=== PATIENT | male | born 1970 | race Caucasian/White ===

== ENCOUNTER 2019-08-02 08:32 | Day surgery (SDC) | payer MEDICAID ==
[2019-08-02] MEDS ORDERED: LACTATED RINGERS 1,000 ML IV ONE (08:37)
[2019-08-02] MEDS ORDERED: CEFAZOLIN SODIUM IN 0.9 % NACL 2 GM/100 ML BAG IV ONE (08:46)
[2019-08-02] MEDS ORDERED: LIDOCAINE 1% 50 ML MDV ONE (08:48)
[2019-08-02] MEDS ORDERED: BUPIVACAINE 0.5%-EPI 1:200000 PF 10 ML VIAL ONE (08:49)
--- NOTE | 2019-08-02 09:26 | ANESTHESIA ---
Pre-Anesthesia VS, & Labs - Diagnosis Left Inguinal Hernia Repair, Umbilical Hernia repair - Procedure Repair of Umbilical and left inguinal hernias Vital Signs: Temp Pulse Resp BP Pulse Ox 36.4 C L 57 L 16 115/80 100 08/02/19 08:52 08/02/19 08:52 08/02/19 08:52 08/02/19 08:52 08/02/19 08:52 Height 6 ft 1 in Weight (kg) 102 kg - NPO >8 hours Home Medications and Allergies Home Medications: Ambulatory Orders Citalopram Hydrobromide [Citalopram HBr] 10 mg PO DAILY 07/27/19 Ibuprofen [Motrin] 600 mg PO Q6H PRN 07/27/19 Citalopram Hydrobromide [Citalopram HBr] 10 mg PO DAILY 07/27/19 Ibuprofen [Motrin] 600 mg PO Q6H PRN 07/27/19 Allergies/Adverse Reactions: Allergies Allergy/AdvReac Type Severity Reaction Status Date / Time No Known Drug Allergies Allergy Verified 07/27/19 16:37 Anes History & Medical History - Anesthetic History Anesthesia Complications: reports: No previous complications - Medical History Cardiovascular: reports: None Pulmonary: reports: Sleep apnea (Does not use CPAP) Gastrointestinal: reports: None Urinary: reports: Nocturia Neuro: reports: None Musculoskeletal: reports: Chronic back pain Endocrine/Autoimmune: reports: None Blood Disorders: reports: None Skin: reports: None Smoking Status: Current every day smoker (1/4 pack per days X 20 years) Psychosocial: reports: Depression, Alcohol (2-3 drinks, 2-3x per week), Cannabis (Daily) - Surgical History General: Other (hemorrhoidectomy) Exam General: Alert, Oriented x3, Cooperative, No acute distress Dental: WNL Mouth Openin Fingerbreadth Neck Mobility: Normal Mallampati classification: I Thyromental Distance: greater than 6 cm Respiratory: Lungs clear, Normal breath sounds, No respiratory distress, No accessory muscle use Cardiovascular: Regular rate, Normal S1, Normal S2, No murmurs Mental/Cognitive Status: Alert/Oriented X3, Normal for patient Plan Anesthesia Type: General Consent for Procedure(s) Verified and Reviewed: Yes Code Status: Attempt Resuscitation ASA classification: 3-Severe systemic disease (untreated CHINTAN) Is this case an emergency?: No
[2019-08-02] MEDS ORDERED: ceFAZolin 1 GM VIAL ONE (09:30)
--- NOTE | 2019-08-02 09:58 | OPERATIVE REPORT ---
Operative Report - General Planned Procedure: Umbilical hernia repair Left inguinal hernia repair Pre-Op Diagnosis: Incarcerated umbilical hernia, Left inguinal hernia Procedure Performed: Repair of umbilical hernia and left inguinal hernia Post Op Diagnosis: Same - Procedure Note Primary Surgeon: Leidy Anesthesia Provider: SARAH Muse Anesthesia Technique: General ET tube, Local IV Fluids (mL): 200 Indications: Painful umbilical and left inguinal hernias Findings: Large pantaloon left inguinal hernia 1 cm umbilical hernia with incarcerated perperitoneal fat. Complications: none apparent - Other Other Information/Narrative: After obtaining informed consent, the patient is brought to the operating room and placed in the supine position on the operating table. Following successful induction of general anesthesia, appropriate padding of all bony prominences, and placement of appropriate monitors, the left abdomen and groin were prepped and draped in the standard surgical fashion. A timeout was held per IDOAP protocol. All elements of the surgical safety checklist were observed before, during, and following the procedure. We began with an ileal inguinal nerve block on the left side. This was done by infiltrating a mixture of local anesthetics medial to the anterior superior iliac spine. We continued by selecting a site for an incision in the left inguinal region. This was infiltrated with local anesthetic as well. The incision was created and carried down through the skin and subcutaneous tissue. Antonia's fascia was divided revealing the external oblique aponeurosis. The aponeurosis was opened in the direction of its fibers and the leaflets reflected laterally. The spermatic cord and hernia sac were carefully identified. The hernia sac was dissected from the cord and allowed to retract back into the abdominal cavity. A large portion of preperitoneal fat was also removed from the cord and placed back into the abdominal cavity. We elected to repair this large indirect defect using a large Prolene hernia system by layered mesh implant. This was dipped in Ancef solution and deployed into the indirect defect. The posterior leaflet was then straightened and flattened in the preperitoneal space. Care was taken to be sure it was not wadded up into a ball and carefully covered the inguinal canal. The anterior leaflet was then straightened and flattened. A roger was created medially for the spermatic cord. It was closed with a single Prolene stitch. The leaflet was then tacked to the pubic tubercle medially and then placed under the external oblique aponeurosis laterally. The wound was checked for hemostasis. The external oblique aponeurosis was then closed with a running Vicryl suture. Antonia's fascia was reapproximated with a running Vicryl suture. Monocryl stitches were placed in the skin. We turned our attention to the umbilical hernia. Again the area was infiltrated with local anesthetic to create a field block. An incision was created directly through the umbilicus at the site of the defect. The umbilical skin was released from the underlying hernia sac and fascia. The edges of the defect were defined. The hernia sac was allowed to retract back into the abdominal cavity. A small portion of incarcerated fat was amputated. The defect was then measured and found to be 1 cm in greatest dimension. We elected to repair this defect with a small ventral Tavo patch. This was dipped in Ancef containing solution and deployed into the defect. It was straightened and flattened in the preperitoneal space. The overlying leaflets were trimmed and then sewn to the fascia using interrupted Prolene suture. The wound was checked for hemostasis and irrigated with warm Ancef containing saline solution. The umbilicus was reconstructed with 0 Vicryl sutures and Monocryl was placed in the skin.All sponge, needle, and instrument counts were correct at the conclusion of the case. The patient was allowed to awaken from anesthesia without difficulty and taken to the postanesthesia care unit in good condition.
[2019-08-02] MEDS ORDERED: BUPIVACAINE 0.5%-EPI 1:200000 PF 30 ML VIAL SUBQ ONE (10:37)
[2019-08-02] MEDS ORDERED: LIDOCAINE 1% 10 ML MDV SUBQ ONE (10:37)
[2019-08-02] MEDS ORDERED: ceFAZolin 1 GM VIAL IR ONE (10:38)
[2019-08-02 13:07] VITALS: BP 128/78
== END 2019-08-02 08:33 | disposition home or self-care (01) ==
LOC: SDS 08:32
PROVIDERS: ATTEND Surgery
PROC: 0YU60JZ Supplement Left Inguinal Region with Synthetic Substitute, Open Approach (ICD-10-PCS; principal; 2019-08-02 09:45)
PROC: 0WUF0JZ Supplement Abdominal Wall with Synthetic Substitute, Open Approach (ICD-10-PCS; 2019-08-02 09:45)
DX: K40.90 Unilateral inguinal hernia, without obstruction or gangrene, not specified as recurrent (principal); K42.9 Umbilical hernia without obstruction or gangrene; G47.33 Obstructive sleep apnea (adult) (pediatric); G89.29 Other chronic pain; M54.9 Dorsalgia, unspecified; F17.210 Nicotine dependence, cigarettes, uncomplicated; F32.9 Major depressive disorder, single episode, unspecified; Z72.89 Other problems related to lifestyle; R12 Heartburn
CPT/HCPCS: 49505; 49587; C1781; J0690; J7120

== ENCOUNTER 2023-10-21 14:07 | Outpatient (CLI) | payer MEDICAID ==
--- NOTE | 2023-10-21 14:42 | Sleep Patient Instructions ---
Sleep Center Visit Summary - Patient Visit Information Reason for Visit: Initial consult for evaluation of sleep disordered breathing and other sleep issues. - Patient Instructions Instructions Attached: Sleep Study, Sleep Study Home Monitor Additional Instructions: You will be completing a sleep study, either an in-lab polysomnography (PSG) or home sleep study (HST). You will follow-up in the sleep care office after the sleep study is completed to hear the results and talk about therapy, if needed. You will be called by our office staff to schedule this appointment, but you may contact us with any questions. - Clinic Information Contact: [facility] [address] [place] [id number] [email or web address] T: [phone]
--- NOTE | 2023-10-21 14:50 | SLEEP CARE CONSULTATION ---
Information from patient questionnaire entered by Binu Watson. I have reviewed and concur with the information entered by Binu Watson. This document represents the service I personally performed and the decisions made by me, Adilene Quintana ARNP. History of Present Illness Service Date and Time: 10/21/2023 1407 Reason for Visit: New patient Chief Complaint: reports: Unrefreshed sleep, Snoring, Excessive daytime sleepiness, Observed pauses in breathing, Frequent awakenings at night Date of Onset: 10+YRS Usual bedtime: 11PM Time it takes to fall asleep: 30MIN with trazodone Snores at night: Yes Observed to quit breathing while asleep: Yes Sleeps alone due to snoring: No Number of times waking at night: 2-3 Reasons for waking at night: reports: Bathroom. denies: Choking, Snoring, Gasping for air Toss, Turn, or Twitch while sleeping: No Recalls having dreams: Yes Usually gets out of bed at: 8AM Feels refreshed in the morning: No Morning headache: No Sleepy or fatigued during the day: Yes Ever fallen asleep while driving: No Takes day naps: No Dreams during day naps: Yes Additional HPI information: I had the pleasure of seeing SHAWNEE REYES today regarding the possibility of him having a sleep disorder. His current complaints are daytime sleepiness, fatigue, frequent night awakenings, observed pauses in breathing, snoring and unrefreshed sleep. He says his family is telling him that he is snoring and stops breathing at night. He says he was diagnosed with sleep apnea back in [id number] but was not put on CPAP treatment. He tried another HST but was unable to keep the device on the night of study. He says he does not wake up feeling refreshed and is tired throughout the day. He would like to wake up feeling better. He states he usually goes to sleep in 30 minutes as long as he takes his trazodone. He does wake up 2-3 times at night to use the bathroom but says this is an improvement from up to 6 times before he was put on the oxybutynin. - Parasomnia Symptoms Ever been unable to move upon waking from sleep: No Walks in sleep: No Talks in sleep: Yes Ever acted out dreams in sleep: No Ever felt weak in the knees when startled or emotional: No Bothered by creepy, crawly, restless sensations in legs: Yes (couple times a week; when sedentary) Problems with memory or concentration: Yes (concentration mostly) Subjective Initial [place] Sleepiness Scale score: 2 (10/21/23) Past Medical History Past Medical History: reports: Depression Social History The patient's occupation is a SE. Patient is Single and lives in . Have you smoked in the past 12 months: No Alcohol use: Yes Alcohol amount and frequency: 1-4 2X WEEK Caffeine use: Yes Caffeine amount and frequency: 4 DAILY Family History Family history of sleep disordered breathing: No Allergies and Home Medications Known drug allergies: No Drug allergies reviewed: Yes Home medication list reviewed: Yes Allergy and home medication list: Allergies No Known Drug Allergies Allergy (Verified 10/20/23 13:46) Home Medications Medication Instructions Recorded Confirmed Last Taken Type Oxaprozin See Rx Instructions .ROUTE .COMPLEX 10/21/23 10/21/23 Unknown History Sertraline [Zoloft] See Rx Instructions .ROUTE .COMPLEX 10/21/23 10/21/23 Unknown History buPROPion [Wellbutrin Xl] See Rx Instructions .ROUTE .COMPLEX 10/21/23 10/21/23 Unknown History oxyBUTYnin chloride [Oxybutynin See Rx Instructions .ROUTE .COMPLEX 10/21/23 10/21/23 Unknown History Chloride] traZODone [Desyrel] See Rx Instructions .ROUTE .COMPLEX 10/21/23 10/21/23 Unknown History Review of Systems Cardiovascular: denies: high blood pressure Gastrointestinal: reports: heartburn Urinary: reports: frequency, impotence Neurological: denies: headaches Psychiatric: reports: depression Ear/Nose/Throat: reports: wisdom teeth removed. denies: tonsillectomy Musculoskeletal: reports: joint pain, back pain Immunologic: reports: itching Physical Exam Vital signs obtained and entered by: BINU Mccarty MA Blood Pressure: 110/64 (LEFT ARM) Cuff size: regular Heart Rate: 59 O2 Saturation: 98 Height: 6 ft 1 in (PER PT) Weight: 236 lb 9.6 oz Body Mass Index: 31.1 BMI Classification: Obese Neck circumference: 17 Mouth and throat: narrow oropharynx Soft palate: long Hard palate: normal Uvula: normal Uvula visualization: 50% Mallampati Class II Tongue: enlarged in size with teeth reece on lateral edges Tonsils: 1+ Neck: normal w/o lymphadenopathy or thyromegaly Heart: regular rate and rhythm Lungs: clear bilaterally Impression and Plan 1. Suspected Obstructive Sleep Apnea-Hypopnea Syndrome, as previously diagnosed and suggested by a history of loud and irregular snoring, observed cessation of breath while asleep, frequent awakening during the night, unrefreshed sleep, cognitive impairment, and excessive daytime sleepiness. I recommend proceeding to polysomnography to confirm the diagnosis and to assess severity. If the patient has significant sleep disordered breathing, a manual CPAP titration study will also be performed to find the optimal treatment pressure. I informed the patient of what the sleep studies involve and after some discussion, obtained agreement to proceed. The pathophysiology of obstructive sleep apnea- hypopnea syndrome was discussed with the patient and health risks of cardiovascular and cerebrovascular disease if not treated. Risks of drowsy driving discussed in detail and patient advised to avoid long distance driving and to bone char puller at the first sign of drowsiness. Patient agreed to plan. * Schedule polysomnography +- manual CPAP titration study and return in 1-2 weeks after the study to discuss result and initiate therapy. * Avoid long distance driving or driving when feeling sleepy. * Avoid alcohol, sedative and muscle relaxant around bedtime. * Attempt to lose weight. * Review instructions provided by trained office staff on how to prepare for the sleep study. * Return for follow-up after sleep study completed. Counseling Topics: Weight loss health impact Plan: PSG/HST Visit Type: In Office Time Spent with Patient (minutes): 30 Provider Statement: I spent 100% of the Face to Face Visit with the patient with greater than 50% spent counseling the patient and coordination of care.
[2023-10-21 14:54] VITALS: BP 110/64; O2SAT 98
== END 2023-10-21 14:08 | disposition home or self-care (01) ==
LOC: SC 14:07
PROVIDERS: ATTEND Nurse Practitioner Family
DX: G47.10 Hypersomnia, unspecified (principal); R06.83 Snoring; R06.81 Apnea, not elsewhere classified; G47.8 Other sleep disorders; R41.89 Other symptoms and signs involving cognitive functions and awareness; E66.9 Obesity, unspecified; Z68.31 Body mass index [BMI] 31.0-31.9, adult
CPT/HCPCS: 99203; 99212

== ENCOUNTER 2023-11-17 19:21 | Outpatient (CLI) | payer MEDICAID | END 2023-11-17 19:22 | disposition home or self-care (01) | LOC: SC 19:21 | PROVIDERS: ATTEND Nurse Practitioner Family | DX: G47.33 Obstructive sleep apnea (adult) (pediatric) (principal); G47.61 Periodic limb movement disorder; E66.9 Obesity, unspecified; Z68.31 Body mass index [BMI] 31.0-31.9, adult | CPT/HCPCS: 95810 ==

== ENCOUNTER 2023-11-27 11:05 | Outpatient (CLI) | payer MEDICAID ==
--- NOTE | 2023-11-27 10:21 | SLEEP CARE CONSULTATION ---
Information from patient questionnaire entered by Lupe Watson. I have reviewed and concur with the information entered by Lupe Watson. This document represents the service I personally performed and the decisions made by me, Adilene Quintana ARNP. History of Present Illness Service Date and Time: 11/27/2023 1020 Initial [place] Sleepiness Scale score: 2 (10/21/23) Current [place] Sleepiness Scale score: 2 (11/27/23) Additional HPI information: SHAWNEE REYES returns via video appointment for follow up and results of the recently performed polysomnography. The sleep study showed severe obstructive sleep apnea with an average AHI of 36.2 and tracey oxygen saturation of 70%. I explained the pathophysiology behind obstructive sleep apnea. We then spent quite a bit of time discussing different treatment options. For mild obstructi ve sleep apnea, surgery and oral appliance are alternatives to nasal CPAP therapy but in moderate or severe cases, nasal CPAP is the most effective and reliable treatment. I reviewed the impact of weight changes on sleep apnea and strongly recommended losing weight. After some discussion, the patient opted to go with the nasal CPAP therapy. Nasal autoCPAP set at 4-15 cmH20 will be ordered with rationale explained. A manual titration study will be ordered if unable to find optimal pressure with office adjustments. I explained how CPAP machine works and what to expect when using the machine. Using CPAP every night in order to get used to it was emphasized. Patient advised to put CPAP mask on before getting into bed so as not to fall asleep without CPAP. To assist acclimation to CPAP use, it could also be used for a short time during day while reading or watching TV. The patient was instructed to call the CPAP supplier to discuss any mechanical problem that may occur. If the mask given is uncomfortable or is difficult to keep on through the night even with adjustment, contact the CPAP supplier as many will replace with another mask style if notified before 30 days. If snoring or perceives is not getting enough air or too much air from the machine, notify this office. Patient counseled not drink alcohol less than 4 hours before bedtime as it can increase snoring and apnea. Patient was cautioned about risks of drowsy driving until sleepiness symptoms resolve. Patient denies drowsy driving. Sleep Study - Results Type of Sleep Study: Polysomnography (COMPLETED 11/17/23) Polysomnography/Home Sleep Study results: IMPRESSION: The quality of the study is good. The patient had minimally reduced sleep efficiency. The sleep architecture was abnormal for sleep fragmentation and reduced amount of time spent in REM and slow wave sleep (N3). Respiratory monitoring showed severe obstructive sleep apnea-hypopnea (AHI = 36.2) associated with frequent arousals, oxyhemoglobin desaturation and moderate hypoxia (tracey oxygen saturation of 70%). The respiratory events occurred more frequently during supine sleep (supine AHI = 53.5; non-supine = 24.32). Snore was moderate to loud in intensity. There was moderate periodic leg movement of sleep not contributing to the sleep fragmentation. Cardiac rhythm was normal sinus rhythm without significant arrhythmia. No abnormal behavior (parasomnia) observed during the night. Allergies and Home Medications Known drug allergies: No Drug allergies reviewed: Yes Home medication list reviewed: Yes (no changes) Allergy and home medication list: Allergies No Known Drug Allergies Allergy (Verified 11/25/23 11:47) Review of Systems Review of systems same as previous: Yes (NO CHANGE) Physical Exam Vital signs obtained and entered by: LUPE Mccarty MA Height: 6 ft 1 in (PER PT) Weight: 240 lb (PER PT) Body Mass Index: 31.6 BMI Classification: Obese Impression and Plan 1. Obstructive Sleep Apnea-Hypopnea Syndrome, severe, with lowest oxygen saturation of 70%. Obviously this is the cause of the patients symptoms of unrefreshed sleep, and excessive daytime sleepiness. Positive pressure therapy could benefit depression. As mentioned above, the patient will be started on nasal autoCPAP therapy with pressure set at 4-15 cmH2O. Compliance guidelines also reviewed. A copy of compliance guidelines will be given for reference at check out. Because the apnea is more severe supine, I instructed to avoid sleeping supine using pillow positioning until able to start CPAP use. 2. Hypoxemia, moderate, with a tracey oxygen saturation of 70% and 49.1 minutes spent under 90%. The baseline oxygen saturation was normal with an average oxygen saturation of 91%. 3. Obesity, unspecified. Currently patients BMI is 31.6. Obesity increases the risk of apnea, CPAP pressure requirements and overall health risks especially cardiovascular and diabetes. Thus patient is advised to lose weight. * Nasal auto CPAP therapy, pressure at 4-15 cmH2O. * Attempt to lose weight. * Avoid alcohol consumption near bedtime. * Avoid supine sleep until using CPAP. * The patient is again cautioned about driving until sleepiness completely resolves. * Return one month after CPAP obtained. I will assess response to therapy and compliance at that time. Counseling Topics: Weight loss health impact Prescriptions: Auto CPAP Visit Type: Telehealth Video Video Type: Doximity Patient Location: Home Location of Provider: Office Patient agrees and consents to this telehealth visit type: Yes Patient agrees to have their insurance billed: Yes Time Spent with Patient (minutes): 20 Provider Statement: I spent 100% of the Telehealth Video Call with the patient with greater than 50% spent counseling the patient and coordination of care.
== END 2023-11-27 11:06 | disposition home or self-care (01) ==
LOC: SC 11:05
PROVIDERS: ATTEND Nurse Practitioner Family
DX: G47.33 Obstructive sleep apnea (adult) (pediatric) (principal); R09.02 Hypoxemia; E66.9 Obesity, unspecified; Z68.31 Body mass index [BMI] 31.0-31.9, adult

== ENCOUNTER 2024-05-03 11:22 | Outpatient (CLI) | payer MEDICAID ==
--- NOTE | 2024-05-03 11:08 | SLEEP CARE CONSULTATION ---
Information from patient questionnaire entered by Lupe Watson. I have reviewed and concur with the information entered by Lupe Watson. This document represents the service I personally performed and the decisions made by me, Adilene Quintana ARNP. History of Present Illness Service Date and Time: 05/03/2024 1040 Previous diagnosis: Severe, Obstructive Sleep Apnea-Hypopnea Syndrome AHI: 36.2 (on 11/17/23) Reason for follow up: first compliance Equipment type: CPAP (RESMED Airsense 11, S/U 03/24/24) Equipment obtained from: Other ([facility]) Mask style: Nasal pillows Backup mask available: No (will keep old mask when replaced) Last cushion change: not changed yet Type of Sleep Study: Polysomnography (COMPLETED 11/17/23) HPI additional information: SHAWNEE REYES was diagnosed to have severe, AHI 36.2, obstructive sleep apnea- hypopnea syndrome and returns via video appointment today for CPAP therapy first compliance follow-up. Sleep Study - Results Type of Sleep Study: Polysomnography (COMPLETED 11/17/23) CPAP Compliance Data - Data Reviewed with Patient Average duration of nightly device use: 5 HRS 55 MINS Compliance rate %: 70 (03/29/24-04/27/24; days used) Current pressure setting (cmH2O): 4-15 (median 6.7, avg 8.8, max 10) Average residual AHI: 3.0 Central apnea: 1.5 Obstructive apnea: 1.1 Hypopnea: 0.4 Average large leak: 0 L/min Subjective Patient concerns: reports: other (pressure ramping starting too low). denies: aerophagia, mask discomfort, air blowing in eyes, mask leak noise, condensation in mask/hose, nasal congestion, dry mouth, nose, throat, epistaxis Observed to snore while using device: No Current pressure setting perceived as: comfortable On therapy, patient: reports: sleeping better (not getting up for bathroom as often), awakening more refreshed, being more awake and alert during the day (not extreme afternoon "yawn-fest"), more rested overall. denies: drowsiness while driving Initial [place] Sleepiness Scale score: 2 (10/21/23) Current [place] Sleepiness Scale score: 1 (05/03/24) Allergies and Home Medications Known drug allergies: No Drug allergies reviewed: Yes Home medication list reviewed: Yes (updated in EMR) Allergy and home medication list: Allergies No Known Drug Allergies Allergy (Verified 04/29/24 12:23) Review of Systems Review of systems same as previous: Yes (NO CHANGE) Physical Exam Vital signs obtained and entered by: LUPE Mccarty MA Height: 6 ft 1 in (PER PT) Weight: 230 lb (PER PT) Body Mass Index: 30.3 BMI Classification: Obese Impression and Plan 1. Obstructive Sleep Apnea-Hypopnea Syndrome, severe, with good treatment compliance and good apnea control. On CPAP therapy, the patient has better sleep quality and is more rested overall. He feels like he needs more air when he initially puts the mask on but this resolves after a few minutes. He probably needs to have his ramp starting pressure adjusted. We will adjust to 5 cmH2O. The patients pressure will be changed to autoCPAP 7-10 cmH20 to reflect pressure being used. Patient advised to contact me if pressure change is uncomfortable so that it can be adjusted. Goals for apnea control discussed. Patient's apnea severity and rationale for treatment to reduce apnea, improve sleep quality and reduce cardiovascular and cerebrovascular events was reviewed. I also reviewed the benefit of consistent device use of CPAP for depression. 2. Obesity, unspecified. Currently patients BMI is 30.3. Obesity increases the risk of apnea, CPAP pressure requirements and overall health risks especially cardiovascular and diabetes. Thus patient is advised to lose weight. * Change auto CPAP pressure to 7-10 cmH2O * Notify me if snoring with mask or feeling that the pressure is too much or too little * Attempt to lose weight * Call this office if any problems using CPAP * Return for follow up in 1-2 months, or sooner if concerns arise Adjust device pressure to (cmH2O): 7-10 Counseling Topics: Spare mask, Weight loss health impact Follow up with Sleep Care in: 1-2 months Visit Type: Telehealth Video Video Type: Agnieszka Patient Location: Home Location of Provider: Office Patient agrees and consents to this telehealth visit type: Yes Time Spent with Patient (minutes): 18 Provider Statement: I spent 100% of the Telehealth Video Call with the patient with greater than 50% spent counseling the patient and coordination of care.
== END 2024-05-03 11:23 | disposition home or self-care (01) ==
LOC: SC 11:22
PROVIDERS: ATTEND Nurse Practitioner Family
DX: G47.33 Obstructive sleep apnea (adult) (pediatric) (principal); E66.9 Obesity, unspecified; Z68.30 Body mass index [BMI] 30.0-30.9, adult

== ENCOUNTER 2024-06-28 09:54 | Outpatient (CLI) | payer MEDICAID ==
--- NOTE | 2024-06-28 09:45 | SLEEP CARE CONSULTATION ---
Information from patient questionnaire entered by Lupe Watson. I have reviewed and concur with the information entered by Lupe Waston. This document represents the service I personally performed and the decisions made by , Adilene Quintana ARNP. History of Present Illness Service Date and Time: 06/28/2024 0940 Previous diagnosis: Severe, Obstructive Sleep Apnea-Hypopnea Syndrome AHI: 36.2 (on 11/17/23) Reason for follow up: other (7 WEEK F/U) Equipment type: CPAP (RESMED Airsense 11, S/U 03/24/24) Equipment obtained from: Other ([facility]) Mask style: Nasal pillows Backup mask available: No Type of Sleep Study: Polysomnography (COMPLETED 11/17/23) HPI additional information: SHAWNEE REYES was diagnosed to have severe, AHI 36.2, obstructive sleep apnea- hypopnea syndrome and returned today for CPAP therapy 7 week follow-up. Sleep Study - Results Type of Sleep Study: Polysomnography (COMPLETED 11/17/23) CPAP Compliance Data - Data Reviewed with Patient Average duration of nightly device use: 6 hours 29 minutes Compliance rate %: 75 (41/51 days used; 05/03/24-06/22/24) Current pressure setting (cmH2O): 7-10 Average residual AHI: 2.8 Central apnea: 0.8 Obstructive apnea: 1.4 Hypopnea: 0.5 Average large leak: 0 L/min Subjective Missed days of use due to: reports: travel Patient concerns: reports: mask leak noise (from hose connection and from valve on mask). denies: aerophagia, mask discomfort, air blowing in eyes, condensation in mask/hose, nasal congestion, dry mouth, nose, throat, epistaxis Observed to snore while using device: No Current pressure setting perceived as: too low (ramp too low) On therapy, patient: reports: sleeping better, awakening more refreshed, being more awake and alert during the day, more rested overall. denies: drowsiness while driving Initial [place] Sleepiness Scale score: 2 (10/21/23) Current [place] Sleepiness Scale score: 0 (06/28/24) Allergies and Home Medications Known drug allergies: No Drug allergies reviewed: Yes Home medication list reviewed: Yes (no changes) Allergy and home medication list: Allergies No Known Drug Allergies Allergy (Verified 06/28/24 09:28) Review of Systems Review of systems same as previous: Yes (NO CHANGE ) Physical Exam Vital signs obtained and entered by: LUPE Mccarty MA Height: 6 ft 1 in (PER PT) Weight: 240 lb (Per Pt) Body Mass Index: 31.6 BMI Classification: Obese Impression and Plan 1. Obstructive Sleep Apnea-Hypopnea Syndrome, severe, with good treatment compliance and good apnea control. On CPAP therapy, the patient has better sleep quality and is more rested overall. He feels his pressure is too low. His residual AHI is at 2.8 with pressure 9.8 cmH2O average pressure used. The patients pressure will be changed to autoCPAP 9-11 cmH20 for patient comfort. Patient advised to contact me if pressure change is uncomfortable so that it can be adjusted. Goals for apnea control discussed. Patient's apnea severity and rationale for treatment to reduce apnea, improve sleep quality and reduce cardiovascular and cerebrovascular events was reviewed. I also reviewed the benefit of consistent device use of CPAP for depression. 2. Obesity, unspecified. Currently patients BMI is 31.6. Obesity increases the risk of apnea, CPAP pressure requirements and overall health risks especially cardiovascular and diabetes. Thus patient is advised to lose weight. * Change auto CPAP pressure to 9-11 cmH2O * Notify me if snoring with mask or feeling that the pressure is too much or too little * Attempt to lose weight * Call this office if any problems using CPAP * Return for follow up in 3 months, or sooner if concerns arise Counseling Topics: Spare mask, Weight loss health impact Follow up with Sleep Care in: 3 months Visit Type: Telehealth Phone Video Type: Agnieszka Patient Location: Home Location of Provider: Office Patient agrees and consents to this telehealth visit type: Yes Patient agrees to have their insurance billed: Yes Time Spent with Patient (minutes): 15 Provider Statement: I spent 100% of the Telehealth Phone Call with the patient with greater than 50% spent counseling the patient and coordination of care.
== END 2024-06-28 09:55 | disposition home or self-care (01) ==
LOC: SC 09:54
PROVIDERS: ATTEND Nurse Practitioner Family
DX: G47.33 Obstructive sleep apnea (adult) (pediatric) (principal); E66.9 Obesity, unspecified; Z68.31 Body mass index [BMI] 31.0-31.9, adult
CPT/HCPCS: 99441